=== PATIENT | female | born 1945 | race Caucasian/White ===

== ENCOUNTER 2018-02-01 19:57 | Inpatient (IN) | payer MEDICARE, OTHER ==
--- NOTE | 2018-02-01 21:04 | ED ---
General Adult HPI - General Chief complaint: Extremity Injury, Lower Stated complaint: Hip Fx Time Seen by Provider: 02/01/18 20:14 Source: patient, family, EMS, RN notes reviewed, old records reviewed Mode of arrival: EMS Limitations: no limitations - History of Present Illness Initial comments: Chief complaint history of present illness is a 72-year-old female here with her . The patient was transferred via ambulance from another hospital with a diagnosis of possible acetabular fracture. The patient reports that she stumbled over her 's oxygen tubing yesterday landing on her left hip area. The patient had had 10-15 years ago total left hip done. The ER physician at the other facility called and received permission from Dr. Baldev Zimmerman to send the patient here for evaluation and management. - Related Data Home Medications Medication Instructions Recorded Confirmed No Known Home Medications 02/01/18 02/01/18 Allergies Allergy/AdvReac Type Severity Reaction Status Date / Time Penicillins Allergy Unknown Verified 02/01/18 20:08 Tetracyclines Allergy Unknown Verified 02/01/18 20:08 codeine AdvReac Nausea Verified 02/01/18 20:08 morphine AdvReac Nausea Verified 02/01/18 20:08 Review of Systems ROS Statement: Those systems with pertinent positive or pertinent negative responses have been documented in the HPI. Review of systems patient has no other complaints other than the pain to the left hip area. This Tylenol she stays still there is no pain. She was given Toradol with good effect at the other facility. She also reports she received Zofran with the hydrocodone which did not cause any nausea or upset stomach. Patient denies any loss of consciousness or any other injuries associated with the fall yesterday. Return repeat trauma examination here was negative for all except discomfort to the left hip as noted on the previous chief complaint. Past medical problems patient was treated for non-Hodgkin's lymphoma continues to get medication immunotherapy through a PICC line in the left chest. Patient surgeries include left hip replacement 10:15 years ago in [place]. Family history noncontributory patient has ALLERGIES to penicillin which causes a rash tetracyclines codeine and morphine which causes upset stomach. Patient is nonsmoker nondrinker ROS Other: All systems not noted in ROS Statement are negative. Past Medical History Additional Past Medical History / Comment(s): non hodgskins lymphoma History of Any Multi-Drug Resistant Organisms: None Reported Additional Past Surgical History / Comment(s): left hip replacement Past Psychological History: No Psychological Hx Reported Smoking Status: Never smoker Past Alcohol Use History: None Reported Past Drug Use History: None Reported General Exam - General Exam Comments Initial Comments: General: The patient is awake and alert, in no distress, and does not appear acutely ill. Patient is here because of a left acetabular fracture as seen on CAT scan. Vital signs temp 97.8 pulse 84 respiratory rate 18 pulse ox 96% room air blood pressure 161/71 Eye: Pupils are equal, round and reactive to light, extra-ocular movements are intact ; there is normal conjunctiva bilaterally. No signs of icterus. Ears, nose, mouth and throat: There are moist mucous membranes and no oral lesions. Neck: The neck is supple, there is no tenderness. Cardiovascular: There is a regular rate and rhythm. No murmur, rub or gallop is appreciated. Patient has a PICC line inserted in the left anterior chest wall. Respiratory: Lungs are clear to auscultation, respirations are non-labored, breath sounds are equal. No wheezes, stridor, rales, or rhonchi. Gastrointestinal: Soft, non-distended, non-tender abdomen without masses or organomegaly noted. There is no rebound or guarding present. No CVA tenderness. Bowel sounds are unremarkable. Back: She denies any back pain.. Musculoskeletal: Patient had a CAT scan which showed evidence of possible acetabular rim fracture. She had a total hip done in this joint tenderness to 15 years ago.. Neurological: CN II-XII intact, There are no obvious motor or sensory deficits. Coordination appears grossly intact. Speech is normal. No focal or lateralizing findings Skin: Skin is warm and dry and no rashes or lesions are noted. Psychiatric: Cooperative, appropriate mood & affect, normal judgment. Limitations: no limitations Course Vital Signs 02/01/18 19:58 Temperature 97.8 F Pulse Rate 84 Respiratory 18 Rate Blood Pressure 161/71 O2 Sat by Pulse 96 Oximetry Medical Decision Making - Medical Decision Making Medical decision making; this is a 72-year-old female transferred from another hospital ER to be cared for by orthopedic surgeon. He accepts patient for transfer. Patient has by CAT scan results possible acetabular rim fracture. Disposition Clinical Impression: Acetabulum fracture, left Disposition: ADMITTED IP TO THIS HOSP Condition: Fair Referrals: None,Stated [Primary Care Provider] - 1-2 days
[2018-02-01] MEDS ORDERED: NALOXONE 0.4 MG/ML 1 ML VIAL IV PRN (21:08)
[2018-02-01 22:34] LABS: Basophils % (A) 0 %; Eosinophils # (A) 0.1 k/uL (0-0.7); Eosinophils % (A) 1 %; HCT 37.6 % (34.0-46.0); HGB 11.9 gm/dL (11.4-16.0); Lymphocytes # (A) 0.6 k/uL (1.0-4.8); Lymphocytes % (A) 13 %; MCH 27.7 pg (25.0-35.0); MCHC 31.6 g/dL (31.0-37.0); MCV 87.7 fL (80.0-100.0); Mean Platelet Volume 7.9; Monocytes # (A) 0.2 k/uL (0-1.0); Monocytes % (A) 5 %; Neutrophils # (A) 3.8 k/uL (1.3-7.7); Neutrophils % (A) 80 %; Platelet Count 156 k/uL (150-450); RBC 4.29 m/uL (3.80-5.40); RDW 13.6 % (11.5-15.5); WBC 4.8 k/uL (3.8-10.6)
[2018-02-01 22:47] LABS: ALT 32 U/L (9-52); AST 26 U/L (14-36); Albumin 3.5 g/dL (3.5-5.0); Alkaline Phosphatase 52 U/L (38-126); Anion Gap 7 mmol/L; Blood Urea Nitrogen 16 mg/dL (7-17); Calcium 8.6 mg/dL (8.4-10.2); Carbon Dioxide 23 mmol/L (22-30); Chloride 111 mmol/L (98-107); Glucose 89 mg/dL (74-99); Sodium 141 mmol/L (137-145); Total Bilirubin 0.9 mg/dL (0.2-1.3); Total Protein 5.4 g/dL (6.3-8.2)
[2018-02-01] MEDS ORDERED: HYDROmorphone 1 MG/ML 1 ML SYRINGE IVP PRN ×2 (23:48)
[2018-02-01] MEDS ORDERED: ONDANSETRON 4 MG/2 ML VIAL IVP PRN (23:52)
[2018-02-01] MEDS: KETOROLAC 30 MG/ML 1 ML VIAL IVP SCH (23:57)
[2018-02-01] MEDS: ONDANSETRON 4 MG/2 ML VIAL IVP PRN (23:58)
[2018-02-02 00:19] VITALS: BMI 26.2
[2018-02-02] MEDS: KETOROLAC 30 MG/ML 1 ML VIAL IVP SCH ×4 (05:32→23:44)
[2018-02-02] MEDS: ONDANSETRON 4 MG/2 ML VIAL IVP PRN (09:15)
[2018-02-02] MEDS: FAMOTIDINE 20 MG TAB PO SCH ×2 (09:15→19:29)
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
[2018-02-02] MEDS: ACETAMINOPHEN TAB 325 MG TAB PO PRN ×2 (13:48→19:29)
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
[2018-02-03] MEDS: KETOROLAC 30 MG/ML 1 ML VIAL IVP SCH ×2 (05:44→12:20)
[2018-02-03 07:31] VITALS: BP 141/77; PULSE 69; RESP 16; TEMP 97.6
[2018-02-03] MEDS: FAMOTIDINE 20 MG TAB PO SCH (08:02)
--- NOTE | 2018-02-03 09:49 | P.PN ---
Subjective Progress Note Date: 02/03/18 Principal diagnosis: left hip pain Patient is a 72-year-old female with a past medical history of non- Hodgkin's lymphoma currently in remission and gammaglobulin therapy every 6 weeks, arthritis, and sinus tachycardia who presented initially to an outside hospital after a mechanical fall. She had been walking and tripped over her 's oxygen tubing. She then started having hip pain and inability to bear weight. She proceeded to the ER and a CT scan found a possible left acetabular fracture. She was subsequently transferred here for orthopedic evaluation. Seen by orthopedics and CT was reviewed which did not show any definitive fracture. Patient seen and examined at bedside. She is still having some left hip pain is afraid about instability when standing. She denies any chest pain, shortness of breath, nausea, vomiting, or diarrhea. She lives in a one-story house but has 3 steps in order to inner her main living space. She has a walker but not a cane. She is unable to fit into her bathroom with a walker and she is asking for a bedside commode. An order has been written for one. Objective - Vital Signs Vital signs: Vital Signs Temp 97.6 F 02/03/18 07:31 Pulse 69 02/03/18 07:31 Resp 16 02/03/18 07:31 BP 141/77 02/03/18 07:31 Pulse Ox 96 02/03/18 07:31 Intake & Output 02/02/18 02/03/18 02/03/18 18:59 06:59 18:59 Intake Total 240 400 240 Output Total 200 1400 Balance 40 -1000 240 Intake: Oral 240 200 240 Other 200 Output: Urine 200 1400 Other: Voiding Method Indwelling Catheter Indwelling Catheter Indwelling Catheter - Exam General: non toxic, no distress, appears at stated age, awake and sitting in chair Derm: warm, dry Head: atraumatic, normocephalic, symmetric Eyes: EOMI, no lid lag, anicteric sclera Mouth: no lip lesion, mucus membranes moist Cardiovascular: S1S2 reg, no murmur, positive posterior tibial pulse bilateral, Lungs: CTA bilateral, no rhonchi, no rales , no accessory muscle use Abdominal: soft, nontender to palpation, no guarding, no appreciable organomegaly Ext: no gross muscle atrophy, no edema, no contractures Neuro: CN II-XI grossly intact, no focal neuro deficits Psych: Alert, oriented, appropriate affect - Labs CBC & Chem 7: 02/01/18 22:18 02/01/18 22:18 Assessment and Plan Assessment: Left hip strain - orthopedic recommendations - Pain control - PT/OT eval. D/W Ortho and did well, cleared for discharge home. - RX for bedside commode due to gait instability, Rx for cane for gait instability will need to use on stairs to get into house. Mechanical Fall - fall precautions - PT eval once okay with ortho Non hodgkins lymphoma - continue with outpatient follow-up Thyroid nodule -continue out patient follow-up Arthritis - pain control Medically stable for discharge at the discretion of ortho. Thank you for allowing us to participate in the care of this patient. Do not hesitate to contact us with questions. Someone can be reached from the [facility] hospitalist group at all hours of the day at [phone]. Blue team [phone] from 7 am to 7 pm.
[2018-02-03] MEDS: ACETAMINOPHEN TAB 325 MG TAB PO PRN (10:16)
--- NOTE | 2018-02-03 11:40 | P.PN ---
Subjective Progress Note Date: 02/03/18 This is a 72-year-old female who is admitted for left hip pain after fall. Patient admits that she has noticed improvement in pain this morning. Patient states that she still gets a spasm in the left leg if she tries to put any weight on the leg. Patient states that she was able to walk with her walker to the bathroom putting some weight on the left lower extremity yesterday. Patient states that she does not walk long distances at home due to getting tired easily. Patient states that if she is going to walk long distances that she brings a wheelchair. Patient denies any new symptoms or complaints today. Patient denies any fever/chills, numbness, weakness, tingling, abdominal pain, shortness of breath or chest pain. Objective - Vital Signs Vital signs: Vital Signs Temp 97.6 F 02/03/18 07:31 Pulse 69 02/03/18 07:31 Resp 16 02/03/18 07:31 BP 141/77 02/03/18 07:31 Pulse Ox 96 02/03/18 07:31 Intake & Output 02/02/18 02/03/18 02/03/18 18:59 06:59 18:59 Intake Total 240 400 240 Output Total 200 1400 Balance 40 -1000 240 Intake: Oral 240 200 240 Other 200 Output: Urine 200 1400 Other: Voiding Method Indwelling Catheter Indwelling Catheter Indwelling Catheter - Exam On exam patient is sitting up in a chair in no acute distress. Patient is alert and oriented 3. Patient still has difficulty and pain with active range of motion of the left hip. There is pain with passive internal and external rotation of the left hip. Calf is soft and nontender to palpation. Sensation intact. Neurovascular status and circulatory status are intact. - Labs CBC & Chem 7: 02/01/18 22:18 02/01/18 22:18 Assessment and Plan (1) Left hip pain Current Visit: Yes Status: Acute Code(s): M25.552 - PAIN IN LEFT HIP SNOMED Code(s): 05364980 (2) History of total hip arthroplasty Current Visit: Yes Status: Acute Code(s): Z96.649 - PRESENCE OF UNSPECIFIED ARTIFICIAL HIP JOINT SNOMED Code(s): 529892700629 Plan: 1. CT is reviewed showing no evidence for acute fracture. 2. Weightbearing as tolerated to the left lower extremity. 3. Continue pain control. 4. Patient is to work with physical therapy. May be discharged home with home care if she is able to ambulate. 5. No surgical intervention planned.
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
[2018-02-03] MEDS: ONDANSETRON 4 MG/2 ML VIAL IVP PRN (12:23)
== END 2018-02-03 14:30 | disposition home health service (06) | DRG 537 ==
LOC: EC 19:57 → 3SUR 21:11
PROVIDERS: ADMIT Orthopaedic Surgery; ATTEND Orthopaedic Surgery
DX: S76.012A Strain of muscle, fascia and tendon of left hip, initial encounter (principal); C85.90 Non-Hodgkin lymphoma, unspecified, unspecified site; E04.1 Nontoxic single thyroid nodule; M19.90 Unspecified osteoarthritis, unspecified site; V89.2XXA Person injured in unspecified motor-vehicle accident, traffic, initial encounter; W18.30XA Fall on same level, unspecified, initial encounter; Z82.49 Family history of ischemic heart disease and other diseases of the circulatory system; Z86.711 Personal history of pulmonary embolism; Z90.710 Acquired absence of both cervix and uterus; Z96.642 Presence of left artificial hip joint; Z88.1 Allergy status to other antibiotic agents; Z88.5 Allergy status to narcotic agent; Z88.0 Allergy status to penicillin; Z79.899 Other long term (current) drug therapy
CPT/HCPCS: 80053; 85025; 99285

== ENCOUNTER → 2018-02-24 | Day surgery (SDC) | payer MEDICARE, OTHER ==
[2018-02-21 08:51] VITALS: BMI 25.7
[~2018-02-24] MED LIST: HEPARIN SODIUM 1,000 UN/ML (10ML VL) IV ONE; IOPAMIDOL-300 50ML BTL IV ONE
[2018-02-24 13:42] VITALS: PULSE 84; RESP 18; TEMP 98.1
[2018-02-24 15:55] VITALS: BP 125/72
--- NOTE | 2018-02-24 17:58 | IR ---
Port-A-Cath check HISTORY: Malfunctioning Port-A-Cath 0.3 minutes fluoroscopy time, 221 intraoperative images obtained Patient's Port-A-Cath was accessed by the radiology nurse. Port-A-Cath is suspected under fluoroscopy. Gentle hand injection of contrast material is performed under direct fluoroscopic observation. Following the procedure patient remained in stable condition. Catheter was flushed with heparinized s gio. No immediate complication. FINDINGS: Port-A-Cath is intact. Distal tip is within the superior vena cava. Contrast courses along the level just proximal to the tip. Contrast courses within the superior vena cava towards the heart. IMPRESSION: Fibrin sheath. The catheter is intravenous in location.
== END ==
LOC: CATHCVL 12:57
PROVIDERS: ATTEND Radiology Diagnostic Radiology
DX: T85.618A Breakdown (mechanical) of other specified internal prosthetic devices, implants and grafts, initial encounter (principal); C90.00 Multiple myeloma not having achieved remission; Z85.72 Personal history of non-Hodgkin lymphomas; E03.9 Hypothyroidism, unspecified; K21.9 Gastro-esophageal reflux disease without esophagitis; M19.90 Unspecified osteoarthritis, unspecified site; M79.7 Fibromyalgia; K58.9 Irritable bowel syndrome, unspecified; E89.0 Postprocedural hypothyroidism; Z88.1 Allergy status to other antibiotic agents; Z88.5 Allergy status to narcotic agent; Z88.0 Allergy status to penicillin; Z88.8 Allergy status to other drugs, medicaments and biological substances
CPT/HCPCS: 36598; J1644; Q9967